=== PATIENT | male | born 1965 | race Caucasian/White ===

== ENCOUNTER 2020-06-17 09:04 | Emergency (ER) | payer BC ==
[~2020-06-17] VITALS: Ht 177.8 cm; Wt 104.8 kg
[2020-06-17] MEDS ORDERED: FAMCICLOVIR250 MG PO (09:37)
[2020-06-17] MEDS ORDERED: PREDNISONE20 MG PO (09:37)
== END 2020-06-17 09:43 | disposition home or self-care (01) ==
LOC: FSED 09:15
DX: B02.9 Zoster without complications (principal)
CPT/HCPCS: 99282